=== PATIENT | male | born 1985 | race Caucasian/White ===

== ENCOUNTER 2017-01-20 20:29 | Emergency (ER) | payer OTHER ==
[~2017-01-20] VITALS: Ht 167.6 cm; Wt 142.0 kg
[2017-01-20 20:55] LABS: ABSOLUTE BASOPHIL COUNT 0 /CUMM (0.0-0.2); ABSOLUTE EOSINOPHIL COUNT 0.1 /CUMM (0.0-0.7); ABSOLUTE GRANULOCYTE CT 7.2 /CUMM (1.4-6.5); ABSOLUTE LYMPH COUNT 3.2 /CUMM (1.2-3.4); ABSOLUTE MONOCYTE COUNT 0.6 /CUMM (0.10-0.60); BASOPHIL % 0.4 % (0.0-2.0); EOSINOPHIL % 0.8 % (0-5); GRANULOCYTE % 64.5 % (42.2-75.2); MEAN CORPUSCULAR HGB CONC 33.4 G/DL (33.0-37.0); MEAN CORPUSCULAR VOLUME 86.8 FL (80.0-94.0); MEAN PLATELET VOLUME 6.9 FL (7.4-10.4); PLATELET COUNT 198 /CUMM (130-400); RED BLOOD CELL CT 5.53 /CUMM (4.70-6.10); WHITE BLOOD CELL COUNT 11.2 /CUMM (4.8-10.8)
--- NOTE | 2017-01-20 22:21 | ED CARDIAC/CP/PALPITATIONS ---
History of Present Illness General Chief Complaint: General Adult Stated Complaint: "I HAVE TIGHTNESS IN MY CHEST CAUSE OF MY MEDS" Source: patient, family Exam Limitations: no limitations Vital Signs & Intake/Output Vital Signs & Intake/Output Vital Signs Date Time Temp Pulse Resp B/P B/P Pulse O2 O2 Flow FiO2 Mean Ox Delivery Rate 01/21 0054 98.6 89 20 134/89 100 Room Air 01/20 2238 98 Room Air 01/20 2144 96.6 70 20 139/88 96 Room Air 01/20 2051 96.6 78 16 157/96 97 Room Air ED Intake and Output 01/21 0000 01/20 1200 Intake Total Output Total Balance Patient 313 lb Weight Allergies Coded Allergies: MDX - Dicyclomine (Dicyclomine) (UNKNOWN 04/18/12) MDX - MILK (MILK) (ABDOMINAL CRAMPING 04/18/12) Triage Note: PER PT CP SINCE WAKING THIS AM MID CHEST NONRADIATING TO NIGHT WITH SWEATING. STARTED CELEXA ON TUESDAY Triage Nurses Notes Reviewed? yes Onset: Abrupt Duration: hour(s): Timing: single episode today Quality/Severity: mild, pressure Location: substernal Activities at Onset: sleep HPI: 31-year-old male with history of anxiety, IBS, ventricular trigemeny/VT s/p ablation, presents to emergency department complaining of chest tightness starting today upon waking up. Chest tightness is described as constant substernal pressure, 3/10, with radiation to left chest, without modifying factors. Patient states that he recently started citalopram 20 mg daily for anxiety 4 days ago. He was on this medication 6 months ago however stopped following insurance changes. When he began citalopram last year he was started at 10 mg and titrated up to 20 mg over the period of one month. The patient is also complaining of headache, intermittent sweats, groggy/sleepy feeling, diarrhea. He states diarrhea is normal for him secondary to his IBS. He recently quit smoking 3 weeks ago. He also recently cut down on his sugar intake one week ago. He denies dyspnea, cough, swelling of lower legs, palpitations, nausea, vomiting. (REG LIZARRAGA,DEBI MARTINEZ) Past History Travel History Traveled to [place] past 21 day No Medical History Any Pertinent Medical History? see below for history Neurological: NONE EENT: NONE Cardiovascular: ventricular trigeminy s/p ablation Respiratory: NONE Gastrointestinal: NONE Hepatic: NONE Renal: NONE Musculoskeletal: NONE Psychiatric: anxiety Endocrine: NONE Surgical History Surgical History: ablation Psychosocial History What is your primary language [place] Tobacco Use: Never used Family History Hx Contributory? No (DEBI FINNEY PA-C) Review of Systems Review of Systems Constitutional: Reports: see HPI. EENTM: Reports: no symptoms. Respiratory: Reports: no symptoms. Cardiovascular: Reports: see HPI. GI: Reports: see HPI. Genitourinary: Reports: no symptoms. Musculoskeletal: Reports: no symptoms. Skin: Reports: no symptoms. Neurological/Psychological: Reports: see HPI. Hematologic/Endocrine: Reports: no symptoms. Immunologic/Allergic: Reports: no symptoms. All Other Systems: Reviewed and Negative (DEBI FINNEY PA-C) Physical Exam Physical Exam Cardiovascular: SEE BELOW Comments: Well-developed well-nourished person in no acute distress HEENT: HEAD is atraumatic, normocephalic Neck: Supple, normal range of motion without pain or tenderness Back: Full range of motion Cardiovascular: Regular rate and rhythms no murmurs rubs or gallops, normal JVP Respiratory: Chest nontender.There were no bony deformities, no asymmetry. No respiratory distress. Patient speaking in full complete sentences. Breath sounds clear to auscultation bilaterally: NO W/R/R Abdomen: Soft, obese, nontender nondistended, no appreciable organomegaly. Normal bowel sounds. No rebound/guarding, No appreciable enlargement of the abdominal aorta, No ascites. Extremity: No edema, full range of motion of extremities Neuro: Alert oriented x3, motor sensory normal, There were no obvious focal neurologic abnormalities. Skin: No appreciable rash on exposed skin, skin is warm and dry. Psych: Mood and affect is normal, memory and judgment is normal. Core Measures ACS in differential dx? Yes Severe Sepsis Present: No Septic Shock Present: No (DEBI FINNEY PA-C) Progress Differential Diagnosis: AMI, aortic dissection, CHF/pulm edema, costochondritis, hyperkalemia, hyperthyroid, musculoskeletal pain, myocarditis, pericarditis, pneumonia, pulmonary embolism, medication side effects, withdrawal symptoms Plan of Care: Orders Procedure Date/time Status TROPONIN LEVEL 01/20 2350 Complete EKG 01/20 2350 Active TROPONIN LEVEL 01/21 2040 Complete COMPREHENSIVE METABOLIC PANEL 01/21 2040 Complete CBC WITHOUT DIFFERENTIAL 01/21 2040 Complete EKG 01/20 2035 Active Laboratory Tests 01/20/170: Troponin I < 0.01 01/20/172047: Anion Gap 10, Estimated GFR > 60, BUN/Creatinine Ratio 18.8, Glucose 101 H, Calcium 9.6, Total Bilirubin 0.8, AST 26, ALT 47, Alkaline Phosphatase 70, Troponin I < 0.01, Total Protein 7.5, Albumin 4.5, Globulin 3.0, Albumin/ Globulin Ratio 1.5, CBC w Diff NO MAN DIFF REQ, RBC 5.53, MCV 86.8, MCH 29.0, RDW 13.0, MPV 6.9 L, Gran % 64.5, Lymphocytes % 28.6, Monocytes % 5.7, Eosinophils % 0.8, Basophils % 0.4, Absolute Granulocytes 7.2 H, Absolute Lymphocytes 3.2, Absolute Monocytes 0.6, Absolute Eosinophils 0.1, Absolute Basophils 0, PUBS MCHC 33.4 First troponin is negative. The patient was discussed with Dr. Kirkpatrick. Will obtain second sets of EKG and troponin. Repeat EKG is unchanged, repeat troponin is negative. Symptoms are likely related to patient's recent changes in medication, possibly side effects of medication. Symptoms may also be related to recent smoking cessation and decrease in consumption. Patient was instructed to call his PCP tomorrow to discuss his symptoms and inquire about possible dose changes needed. The patient is in no acute distress, his vital signs have been within normal limits for the duration of the visit, he is well-appearing. The patient is in agreement with the plan of care. (REG LIZARRAGA,DEBI MARTINEZ) Initial ED EKG: sinus rhythm @66bpm, normal axis, slight prolonged QT interval Repeat EKG: unchanged (SINUS RHYTHM @62BPM) (REG LIZARRAGA,DEBI MARTINEZ) Departure Departure Disposition: HOME OR SELF CARE Condition: Stable Clinical Impression Primary Impression: Chest pain Secondary Impressions: Medication side effect Referrals: LESLY MORROW MD (PCP/Family) Additional Instructions: As discussed, call your primary care doctor tomorrow to inform them of your symptoms for possible dose adjustment in your citalopram. Continue to take your medication as prescribed until you see your primary care doctor. Return with any worsening symptoms or concerns. Please note that there might be incidental findings in your evaluation that are unrelated to the current emergency department visit. Please notify your primary care doctor about this emergency department visit in order to obtain and review all of the testing performed so that these incidental findings can be monitored as needed. If you're unable to follow up as outlined in the discharge instructions please return to the emergency department. Thank you for choosing the [facility] Emergency Department for your care. It was a pleasure to serve you today. Departure Forms: Customer Survey General Discharge Information (REG LIZARRAGA,DEBI MARTINEZ) PA/DOT NET ARCHITECT Co-Sign Statement Statement: ED Attending supervision documentation- I saw and evaluated the patient. I have also reviewed all the pertinent lab results and diagnostic results. I agree with the findings and the plan of care as documented in the PA's/DOT NET ARCHITECT's documentation. x I have reviewed the ED Record and agree with the PA's/DOT NET ARCHITECT's documentation. [] Additions or exceptions (if any) to the PAs/DOT NET ARCHITECT's note and plan are summarized below: [] (BENNIE CORONA,ROSE) Critical Care Note Critical Care Note Critical Care Time: non-applicable (REG LIZARRAGA,DEBI MARTINEZ)
[2017-01-21 00:54] VITALS: BP 134/89
== END 2017-01-21 00:59 ==
LOC: ERH 20:29
PROVIDERS: Emergency Medicine
DX: T50.905A Adverse effect of unspecified drugs, medicaments and biological substances, initial encounter (principal); R07.89 Other chest pain
CPT/HCPCS: 93005; 93010; 96360; 96361